=== PATIENT | female | born 1960 | race Caucasian/White ===

== ENCOUNTER 2018-01-21 13:17 | Day surgery (SDC) | payer OTHER, MEDICAID ==
--- NOTE | 2018-01-20 17:19 | GHP ---
[f rep st] PREOP HISTORY AND PHYSICAL DATE OF ADMISSION: 01/21/2018 ADMISSION DIAGNOSIS: Urinary incontinence. HISTORY OF PRESENT ILLNESS: This is a lady who has had an InterStim placed in the past for urinary i ncontinence and most recently, she had the InterStim assessed and it was felt that the InterStim need ed to be replaced. She has had pain with the InterStim and this started 4 days prior us originally s eeing her and then worse with lying down. She had been having nocturia 4 times a day. Daytime frequ ency every 30 minutes. She does have urge incontinence and at the present time it has been elected t o replace her InterStim. PAST MEDICAL HISTORY: She has asthma, chronic cystitis, diabetes, herpes, hypertension, hypercholest erolemia, osteoporosis, renal failure, sarcoidosis. PAST SURGICAL HISTORY: Appendix, bladder surgery, , shoulder, pilonidal cyst, hysterectomy, and InterStim. MEDICATIONS: Include Actos, buspirone, hydrochlorothiazide, lactulose, lorazepam, Senokot, and trazo done. ALLERGIES: Codeine, fluconazole. FAMILY HISTORY: Heart disease, hypertension, anemia, diabetes. SOCIAL HISTORY: Nondrinker, nonsmoker. REVIEW OF SYSTEMS: Negative cardiac, respiratory, GI and endocrine. PHYSICAL EXAMINATION: VITAL SIGNS: Stable. CHEST: Clear. HEART: Regular rate and rhythm. ABDOME N: Normal, no organomegaly, rebound or guarding. LOWER EXTREMITIES: Normal. ASSESSMENT: At the present time, she is admitted for removal and replacement of her InterStim device . This has been evaluated by [employer] baker helper client care representative and it is felt that removing th e device and replacing it would be in the best interest considering her pain and discomfort. /[id number]/MODL
--- NOTE | 2018-01-21 10:59 | PDHPUP ---
History & Physical Update H&P update statement: This history and physical update is based on an assessment of the patient which was completed after admission or registration (within 24 hours), but prior to the surgery/procedure. H&P update: H&P reviewed & patient examined, no change in patient's condition since H&P completed
[2018-01-21] MEDS ORDERED: ceFAZolin 2 GM/DEXTROSE 100 ML IV ONE (14:23)
[2018-01-21] MEDS ORDERED: BUPIVACAINE/EPI 0.5% 30 ML SDV ONE ×2 (14:32→16:11)
[2018-01-21] MEDS ORDERED: LIDOCAINE 1% 300 MG/30 ML SDV ONE ×2 (14:33→16:11)
[2018-01-21] MEDS ORDERED: LIDOCAINE 1% 2 ML INJ ID PRN (14:56)
[2018-01-21] MEDS ORDERED: LR 1,000 ML IV ONE (14:56)
[2018-01-21] MEDS ORDERED: fentaNYL 100 MCG/2 ML INJ ONE ×4 (15:29→18:35)
[2018-01-21] MEDS ORDERED: MIDAZOLAM 2 MG/2 ML VIAL ONE (15:29)
[2018-01-21] MEDS ORDERED: PROPOFOL/EMULSION 500 MG/50 ML BOTTLE IV ONE (15:29)
--- NOTE | 2018-01-21 15:31 | PDANEPAE ---
ANE Past Medical History - Cardiovascular History Hx Hypertension: Yes Hx Arrhythmias: No Hx Chest Pain: No Hx Coronary Artery / Peripheral Vascular Disease: No Hx CHF / Valvular Disease: No Hx Palpitations: No - Pulmonary History Hx COPD: Yes Hx Asthma/Reactive Airway Disease: No Hx Recent Upper Respiratory Infection: No Hx Oxygen in Use at Home: Yes O2 in Use at Home (L/minute): 3 Hx Sleep Apnea: No Sleep Apnea Screening Result - Last Documented: Positive Pulmonary History Comment: HS OXYGEN. SCARCOIDOSIS. LUNG/VOCAL CORD GRANULOMAS - Neurologic History Hx Cerebrovascular Accident: No Hx Seizures: No Hx Dementia: No - Endocrine History Hx Diabetes: No - Renal History Renal History Comment: BLADDER STIMULATOR PLACED FOR INCONT. WAS OK UNTIL SHE FELL IN. 2016 NOW DISLODGED - Liver History Hx Hepatic Disorders: No - Neurological & Psychiatric Hx Hx Neurological and Psychiatric Disorders: Yes Neurological / Psychiatric History Comment: ANXIETY - Cancer History Hx Cancer: Yes Cancer History Comment: UTERINE. WITH POST CHEMOTHERAPY - Congenital Disorder History Hx Congenital Disorders: No - GI History Hx Gastrointestinal Disorders: Yes Gastrointestinal History Comment: SCARCOIDOSIS CAUSES GI ISSSUES - Other Health History Other Health History: DIFFICULTY SWALLOWING. FIBROMYALGIA. WEARS DENTURES. BRUISES EASILY. DVT AGE 18 - Chronic Pain History Chronic Pain: Yes (ALL OVER) - Surgical History Prior Surgeries: BLADDER STIMULATOR 2016. NERVE STIMULATOR. KRISTINA. APPY. PILONIDAL CYST. LT SHLDR REMVL BONE SPURS. HYSTERECTOMY. REMVL LT HEEL BONE SPURS ANE Review of Systems Review of Systems: - Exercise capacity METS (RN): 4 METS ANE Patient History - Allergies Allergies/Adverse Reactions: codeine Allergy (Verified 01/21/18 14:32) ELEVATED BLOOD PRESSURE fluconazole Allergy (Verified 01/21/18 15:19) latex Allergy (Verified 01/21/18 14:32) SORES metformin Allergy (Verified 01/21/18 14:32) Diarrhea - Home Medications Home Medications: Amlodipine Bes/Olmesartan Med HS 01/08/18 [Last Taken 01/20/18 17:00] Claritin DAILY 01/08/18 [Last Taken 01/21/18 08:00] HCTZ (*) DAILY 01/08/18 [Last Taken 01/20/18] Keflex TID 01/08/18 [Last Taken 01/19/18] LORAZEPAM DAILY 01/08/18 [Last Taken 01/21/18 08:00] LYRICA BID 01/08/18 [Last Taken 01/21/18 08:00] Omeprazole BID 01/08/18 [Last Taken 01/21/18 08:00] Potassium Chloride DAILY 01/08/18 [Last Taken 01/21/18 08:00] Ranitidine HCl HS 01/08/18 [Last Taken 01/20/18 20:00] Ambien Cr 10 mg PO HS 01/21/18 [Last Taken 01/20/18 23:00] Docusate Sodium 1 BID 01/21/18 [Last Taken 01/21/18 08:00] Lactulose 30 ml PO PRN 01/21/18 [Last Taken 01/20/18 23:00] busPIRone 10 mg PO DAILY 01/21/18 [Last Taken 01/21/18 08:00] - NPO status NPO Since - Liquids (Date): 01/20/18 NPO Since - Liquids (Time): 23:00 NPO Since - Solids (Date): 01/20/18 NPO Since - Solids (Time): 20:00 - Smoking Hx Smoking Status: Former smoker ANE Labs/Vital Signs - Vital Signs Blood Pressure: 106/83 Heart Rate: 98 Respiratory Rate: 18 O2 Sat (%): 93 Height: 160.02 cm Weight: 97.522 kg ANE Physical Exam - Airway Neck exam: decreased ROM, increased neck circumference, short neck Mallampati Score: Class 3 Mouth exam: poor dentition, dentures, small mouth opening, abnormal chin - Pulmonary Pulmonary: reduced air movement, expiratory wheeze - Cardiovascular Cardiovascular: regular rate and rhythym - ASA Status ASA Status: III ANE Anesthesia Plan Anesthesia Plan: MAC Total IV Anesthesia: Yes
[2018-01-21] MEDS ORDERED: LIDOCAINE 2% 100 MG/5 ML SYR ONE (15:32)
[2018-01-21] MEDS ORDERED: ONDANSETRON 4 MG/2 ML VIAL ONE (15:32)
[2018-01-21] MEDS ORDERED: PROPOFOL 200 MG/20 ML VIAL ONE (16:56)
[2018-01-21] MEDS ORDERED: ALBUTEROL 3 ML DEYVIAL IH PRN (17:44)
[2018-01-21] MEDS ORDERED: ONDANSETRON 4 MG/2 ML VIAL IVP PRN (17:44)
[2018-01-21] MEDS ORDERED: NALOXONE HCL 0.4 MG/ML INJ IVP PRN (17:44)
--- NOTE | 2018-01-21 17:46 | POSTANESTH ---
Post Anesthetic Evaluation Cardiovascular Status: Similar to Pre-Op Cond Respiratory Status: Similar to Pre-op Cond. Level of Consciousness/Mental Status: Mildly Sleepy, Arousable Pain Control: Adequate, Prn Tx Ordered Nausea/Vomiting Control: Adequate, Prn Tx Ordered Complications Possibly Related to Anesthesia: None Noted
[2018-01-21] MEDS: fentaNYL 100 MCG/2 ML INJ IVP PRN ×3 (17:53→18:37)
--- NOTE | 2018-01-21 17:54 | POSTOPPROG ---
Post Op Note Date of Operation: 01/21/18 Surgeon: Shiraz Hanna Anesthesiologist: flor Anesthesia: Local (Specify), Other (Specify) (MAC) Pre-op Diagnosis: urge incontinence Procedure: removal of interstim, capsulectomy, placement of new interstim Inf/Abcess present in the surg proc area at time of surgery?: No EBL: Minimal Specimen(s): dictated op note
--- NOTE | 2018-01-21 18:20 | GOP ---
[f rep st] OPERATIVE REPORT DATE OF OPERATION: SURGEON: Shiraz Hanna MD NEUROSURGEON: Dr. Shiraz Hanna. PREOPERATIVE DIAGNOSIS: Urge incontinence. POSTOPERATIVE DIAGNOSIS: Urge incontinence. PROCEDURE PERFORMED: Removal of InterStim battery and electrode lead, then capsulectomy from the bat shirin site, and then placement of new neuromodulation InterStim device with battery placement. FINDINGS: SPECIMENS: Battery capsule/battery pulse generator capsule from the old stimulator and closure of th at. She tolerated the procedure well and will be discharged home to have followup in the office in 2 week s. ESTIMATED BLOOD LOSS: Less than 15 mL. INDICATIONS: Urge incontinence and painful bladder syndrome. This is a lady who preoperatively and had an InterStim placed and because of a fall, that had malfunctioned. At the present time, she is h aving removal of this plus replacement. DESCRIPTION OF PROCEDURE: Lady underwent appropriate anesthesia and positioned in the abdomen down, and with fluoroscopy, could identify the site of her old electrode and all this was done with local a nesthesia. I was able to make an incision to remove the battery and divide the electrode and could f ind where it had gone across that top of the sacrum and then coursed into the left sacral nerve root foramen 3 and it was taken out intact. Then, at that point, that area was irrigated and I did do a c apsulotomy, taking out all the capsule from around the battery and then closed that after irrigation, confirming hemostasis, with a 3-0 Vicryl. 4-0 Monocryl was used to close the skin edges, and after removal and capsulotomy, then at that point, we identified on the patient's right side, sacral forame n 3, and were able to place a finder needle into the foramen and then was able to pass the lead guide and the tract dilator over that site and placed so it hockey-sticked in sacral nerve root 3. With e lectrostimulation on 1-lead, she had some toe flexion and she had bellowing buttocks on all the lead sites. Then, at that point, made a new space in the subcutaneous fat on top of the muscle of the but tock and placed the new battery after connecting it appropriately, and it was in an antibiotic bag. Then, the subcutaneous tissue was approximated with 3-0 Vicryl and then the skin was approximated wit h 4-0 Monocryl. All wound sites were closed in a similar fashion and Dermabond placed over the sites and sterile dressing with Coban was placed over the lower back. We did test the device in the opera ting room and felt all parts were functioning appropriately and she will have settings produced after she is awakened in the recovery room for appropriate lead settings. COMPLICATIONS: None /[id number]/MODL
[2018-01-21 19:17] VITALS: BP 133/90
== END 2018-01-21 19:30 | disposition home or self-care (01) ==
LOC: FSGY 13:17
PROVIDERS: ATTEND Specialist
DX: N39.41 Urge incontinence (principal)
CPT/HCPCS: 64581; 64590; 76001; 95972; C1894; C1767; C1778; C1781; C1787; J0690; J2001; J2250; J2405; J2704; J3010